=== PATIENT | male | born 1990 | race Caucasian/White ===

== ENCOUNTER 2016-10-31 17:05 | Emergency (ER) | payer OTHER ==
[~2016-10-31] VITALS: Ht 180.3 cm; Wt 93.0 kg
[2016-10-31 17:06] VITALS: BP 147/70; PULSE 76; RESP 16; TEMP 98.6; O2SAT 100
[2016-10-31] MEDS ORDERED: LEXA5TAB PO (17:41)
--- NOTE | 2016-10-31 17:44 | PD ---
HPI . Right jaw pain Chief Complaint: ENT Complaint Time Seen by Provider: 17:43 Travel History International Travel<30 days: No Contact w/Intl Traveler<30days: No Traveled to known affect area: No History of Present Illness HPI 25-year-old male withno significant past medical history here with complaints of right ear/jaw pain. Patient said this has been going on for approximately 2 weeks. He says every time he chews he experiences pain in his right ear. On examination patient is actually showed me the right jaw. He does have some evidence of TMJ with popping in his joints. He has not seen a dentist recently. He recently moved here from [place] and does not have a primary care provider. He denies any cold symptoms. Denies any fever or chills. PFSH Past Medical History Medical History: Denies Significant Hx Social History Tobacco Use: No Allergies-Medications (Allergen,Severity, Reaction): Coded Allergies: No Known Allergies (Unverified , 10/31/16) Reported Meds & Prescriptions Reported Meds & Active Scripts Active Ibuprofen 800 Mg Tab 800 Mg PO TID Reported Lexapro (Escitalopram Oxalate) 5 Mg Tab 5 Mg PO DAILY Review of Systems General / Constitutional: No: Fever Eyes: No: Visual changes HENT: No: Headaches Cardiovascular: No: Chest Pain or Discomfort Respiratory: No: Shortness of Breath Gastrointestinal: No: Abdominal Pain Genitourinary: No: Dysuria Musculoskeletal: Positive: Pain (right jaw pain) Skin: No Rash Neurologic: No: Weakness Psychiatric: No: Depression Endocrine: No: Polydipsia Hematologic/Lymphatic: No: Easy Bruising Physical Exam Narrative GENERAL: AAO x 3, no acute distress, Well-nourished, well-developed patient. SKIN: Warm and dry. No visible rashes or bruising. HEAD: Normocephalic and atraumatic. EYES: No scleral icterus. No injection or drainage. EOM intact, PERRLA ENT: No nasal drainage noted. Mucous membranes pink. Airway patent. TMs normal bilaterally. Posterior pharynx without erythema, exudates or edema.there is jaw popping on examination of his temporomandibular joint. NECK: Supple, trachea midline. No JVD.no lymphadenopathy. CARDIOVASCULAR: Regular rate and rhythm without murmurs, gallops, or rubs. RESPIRATORY: Breath sounds equal bilaterally. No accessory muscle use. No rhonchi or rales. GASTROINTESTINAL: Abdomen soft, non-tender, nondistended. EXTREMITIES: No cyanosis or edema. BACK: Nontender without obvious deformity. No CVA tenderness. PSYCH: AAO x 3, normal affect. Data Data Last Documented VS Vital Signs Date Time Temp Pulse Resp B/P Pulse Ox O2 Delivery O2 Flow Rate FiO2 10/31/16 17:06 98.6 76 16 147/70 100 MDM Medical Decision Making Medical Screen Exam Complete: Yes Emergency Medical Condition: Yes Medical Record Reviewed: Yes Differential Diagnosis TMJ, OE, OM Narrative Course 25-year-old male withno significant past medical history here with complaints of right ear/jaw pain. Patient said this has been going on for approximately 2 weeks. He says every time he chews he experiences pain in his right ear. On examination patient is actually showed me the right jaw. He does have some evidence of TMJ with popping in his joints. He has not seen a dentist recently. He recently moved here from [place] and does not have a primary care provider. He denies any cold symptoms. Denies any fever or chills. Patient seen and examined. I do not see any abnormalities with his ear. He does have some very mild cerumen in the right side of his ear canal. He does have some jaw popping on examination. I recommend that he see a dentist or bunch maker hand for further treatment and evaluation. In the meantime I recommend high-dose ibuprofen to help with inflammation. I have discussed this with him and he was understanding. Patient verbalized understanding of instructions, questions were answered, and thanked me for their care. I advised them if their condition worsens, please return to the nearest emergency room for further care. Diagnosis Primary Impression: TMJ arthralgia Qualified Code: M26.621 - Arthralgia of right temporomandibular joint Patient Instructions: General Instructions Additional Instructions: Please return to emergency department if your symptoms return or worsen. Follow up with your primary care provider. Take medications as prescribed. Please see a dentist or bunch maker hand for further workup and treatment. Med/Other Pt SpecificInfo: Prescription(s) given Scripts Ibuprofen 800 Mg [id number] Mg PO TID #21 TAB Prov:Albert Cisneros MD 10/31/16 Disposition: 01 DISCHARGE HOME Condition: Stable Niurka Yin Oct 31, 2016 17:43
[2016-10-31] MEDS ORDERED: IBUP800T23 PO (17:52)
== END 2016-10-31 17:57 | disposition home or self-care (01) ==
LOC: NEPK 17:05
DX: M26.621 Arthralgia of right temporomandibular joint (principal)
CPT/HCPCS: 99283

== ENCOUNTER 2017-02-24 20:48 | Emergency (ER) | payer OTHER ==
[2017-02-24 20:48] VITALS: BP 138/102; PULSE 130; RESP 18; TEMP 97.4; O2SAT 98
[~2017-02-24 20:48] MED LIST: IBUP800T23 PO; LEXA5TAB PO
== END 2017-02-24 22:00 | disposition left against medical advice (07) ==
LOC: NED 20:48
DX: R06.02 Shortness of breath (principal); Z53.21 Procedure and treatment not carried out due to patient leaving prior to being seen by health care provider
CPT/HCPCS: 99281

== ENCOUNTER 2017-02-27 19:14 | Emergency (ER) | payer OTHER ==
[~2017-02-27] VITALS: Ht 180.3 cm; Wt 88.0 kg
[2017-02-27 19:18] VITALS: BP 143/86; PULSE 64; RESP 16; TEMP 98.3; O2SAT 100
--- NOTE | 2017-02-27 20:22 | PD ---
HPI Chief Complaint: Chest Pain Time Seen by Provider: 20:19 Travel History International Travel<30 days: No Contact w/Intl Traveler<30days: No Traveled to known affect area: No History of Present Illness HPI 26 YO M with PMH of anxiety, sick sinus syndrome, s/p pacemaker implantation presents to the ED for evaluation of 3 day history of 5/10 left sided chest pain radiating down the bilateral arms, left greater than right. He denies associated palpitations, shortness of breath, diaphoresis, nausea or vomiting. He endorses similar history "ever since I got my pacemaker implanted." Also complains of "tightness of my muscles" including tight sensation in the abdomen a few days ago. Those symptoms resolved on presentation. Patient was seen at an outside hospital 3 days ago and treated for "swollen throat feeling" with Prednisone. He endorses compliance with the medication. [place] [employer] [place] [facility] Past Medical History Cardiovascular Problems: Yes (Sick Sinus Syndrome) Past Surgical History Cardiac Surgery: Yes (PACER) Pacemaker: Yes Social History Alcohol Use: No Tobacco Use: No Substance Use: No Allergies-Medications (Allergen,Severity, Reaction): Coded Allergies: No Known Allergies (Unverified , 02/24/17) Reported Meds & Prescriptions Reported Meds & Active Scripts Active Ibuprofen 800 Mg Tab 800 Mg PO TID Reported Lexapro (Escitalopram Oxalate) 5 Mg Tab 5 Mg PO DAILY Review of Systems Except as stated in HPI: all other systems reviewed are Neg Physical Exam Narrative GENERAL: Well-nourished, well-developed , anxious, athletic white male in no acute distress. SKIN: Focused skin assessment warm/dry. There is a well-healed scar over the left clavicular area. There is an implanted pacemaker palpable beneath the skin. Tender to palpation of the lead of the pacemaker where passes under inferior edge of the clavicle. HEAD: Normocephalic. EYES: No scleral icterus. No injection or drainage. NECK: Supple, trachea midline. No JVD or lymphadenopathy. CARDIOVASCULAR: Regular rate and rhythm without murmurs, gallops, or rubs. RESPIRATORY: Breath sounds clear and equal bilaterally. No accessory muscle use. GASTROINTESTINAL: Abdomen soft, non-tender, nondistended. Active bowel sounds. MUSCULOSKELETAL: No cyanosis, or edema. NEUROLOGICAL: Awake and alert. Cranial nerves II through XII intact. Motor and sensory grossly within normal limits. Five out of 5 muscle strength in all muscle groups. Normal speech. BACK: Nontender without obvious deformity. No CVA tenderness. Data Data Last Documented VS Vital Signs Date Time Temp Pulse Resp B/P Pulse Ox O2 Delivery O2 Flow Rate FiO2 02/27/17 20:34 16 02/27/17 19:18 98.3 64 143/86 100 Room Air Orders Electrocardiogram (02/27/17 19:28) Chest, Pa & Lat (02/27/17 19:28) Basic Metabolic Panel (Bmp) (02/27/17 20:17) Ckmb (Isoenzyme) Profile (02/27/17 20:17) Complete Blood Count With Diff (02/27/17 20:17) Magnesium (Mg) (02/27/17 20:17) Troponin I (02/27/17 20:17) Ecg Monitoring (02/27/17 20:17) Bilateral Bp Monitoring (02/27/17 20:17) Iv Access Insert/Monitor (02/27/17 20:17) Oximetry (02/27/17 20:17) Sodium Chloride 0.9% Flush (Ns Flush) (02/27/17 20:30) Labs Laboratory Tests Test 02/27/17 20:30 White Blood Count 13.5 TH/MM3 Red Blood Count 5.01 MIL/MM3 Hemoglobin 14.2 GM/DL Hematocrit 42.9 % Mean Corpuscular Volume 85.5 FL Mean Corpuscular Hemoglobin 28.3 PG Mean Corpuscular Hemoglobin 33.1 % Concent Red Cell Distribution Width 12.9 % Platelet Count 218 TH/MM3 Mean Platelet Volume 7.9 FL Neutrophils (%) (Auto) 67.7 % Lymphocytes (%) (Auto) 24.5 % Monocytes (%) (Auto) 7.5 % Eosinophils (%) (Auto) 0.2 % Basophils (%) (Auto) 0.1 % Neutrophils # (Auto) 9.2 TH/MM3 Lymphocytes # (Auto) 3.3 TH/MM3 Monocytes # (Auto) 1.0 TH/MM3 Eosinophils # (Auto) 0.0 TH/MM3 Basophils # (Auto) 0.0 TH/MM3 CBC Comment DIFF FINAL Differential Comment Sodium Level 136 MEQ/L Potassium Level 3.4 MEQ/L Chloride Level 99 MEQ/L Carbon Dioxide Level 29.5 MEQ/L Anion Gap 8 MEQ/L Blood Urea Nitrogen 11 MG/DL Creatinine 1.13 MG/DL Estimat Glomerular Filtration 80 ML/MIN Rate Random Glucose 80 MG/DL Calcium Level 9.1 MG/DL Magnesium Level 2.1 MG/DL Total Creatine Kinase 63 U/L Troponin I LESS THAN 0.02 NG/ML MDM Medical Decision Making Medical Screen Exam Complete: Yes Emergency Medical Condition: Yes Differential Diagnosis medical claims specialist complication versus chest pain versus anxiety versus musculoskeletal pain versus GERD versus PUD versus other Narrative Course 26 YO M with PMH of anxiety, sick sinus syndrome, s/p pacemaker implantation presents to the ED for evaluation of 3 day history of 5/10 left sided chest pain radiating down the bilateral arms, left greater than right. He denies associated palpitations, shortness of breath, diaphoresis, nausea or vomiting. He endorses similar pain "ever since I got my pacemaker implanted." Also complains of "tightness of my muscles" including tight sensation in the abdomen a few days ago. Those symptoms resolved on presentation. Patient was seen at an outside hospital 3 days ago and treated for "swollen throat feeling" with Prednisone. Vitals reviewed. On physical exam the patient is anxious appearing. There is a pacemaker implanted in the left upper chest. The lead travels under the inferior edge of the clavicle and this is tender to palpation. The physical exam is otherwise unremarkable. EKG rate 61, sinus rhythm. IL interval 138, QRS 99, QTC 363. Normal axis. No ST changes. Reviewed by Dr. Beal. CXR: The lungs are clear per radiology read. Cardiac enzymes: Negative 1 Magnesium: 2.1 No concerning abnormalities of CBC, CMP. The patient's chest pain is localized and I suspect that his other symptoms are caused by anxiety. He states that he was taking antidepressants but stopped "a while back" because he didn't think he needed them anymore. [facility], return for worsening of symptoms. He indicated understanding of instructions and is agreeable to the care plan. He stable and discharged home. Diagnosis Primary Impression: Chest pain not due to acute coronary syndrome Additional Impression: Chest pain, localized [facility] Patient Instructions: Chest Pain (ED), General Instructions Additional Instructions: Rest, hydrate. Return to normal, gentle activities as tolerated. [facility]. Return to the ED for any urgent or emergent medical condition. Disposition: 01 DISCHARGE HOME Condition: Stable Samreen Arteaga Feb 27, 2017 20:22
--- NOTE | 2017-02-27 20:23 | RADRPT ---
EXAM DATE/TIME: 02/27/2017 19:47 [facility] COMPARISON: No previous studies available for comparison. INDICATIONS : Chest pain. MEDICAL HISTORY : None. SURGICAL HISTORY : Pacemaker. ENCOUNTER: Initial ACUITY: 3 days PAIN SCORE: 4/10 LOCATION: Bilateral chest FINDINGS: PA and lateral views of the chest demonstrate the lungs to be symmetrically aerated without evidence of mass, infiltrate or effusion. The cardiomediastinal contours are unremarkable. Osseous structure s are intact. Cardiac pacer with 2 leads. CONCLUSION: The lungs are clear Felix Roberson MD on February 27, 2017 at 20:21 Board Certified Radiologist. This report was verified electronically.
[2017-02-27] MEDS ORDERED: SODIUM CHLORIDE 0.9% FLUSH 10 ML FLUSH IVF PRN (20:30)
[2017-02-27 20:34] VITALS: RESP 16
[2017-02-27 21:03] LABS: AUTOMATED NEUTROPHIL # 9.2 TH/MM3 (1.8-7.7); BASOPHIL % 0.1 % (0.0-2.0); EOSINOPHIL % 0.2 % (0.0-4.0); HEMATOCRIT 42.9 % (39.0-51.0); HEMO FLAGS DIFF FINAL; LYMPH % 24.5 % (9.0-44.0); LYMPHOCYTE # 3.3 TH/MM3 (1.0-4.8); MEAN CELL VOLUME 85.5 FL (80.0-100.0); MEAN CORPUSCULAR HEMOGLOBIN 28.3 PG (27.0-34.0); MEAN CORPUSCULAR HGB CONC 33.1 % (32.0-36.0); MONO % 7.5 % (0.0-8.0); NEUT % 67.7 % (16.0-70.0); PLATELET COUNT 218 TH/MM3 (150-450); RED BLOOD COUNT 5.01 MIL/MM3 (4.50-5.90); RED CELL DISTRIBUTION WIDTH 12.9 % (11.6-17.2); WHITE BLOOD COUNT 13.5 TH/MM3 (4.0-11.0)
[2017-02-27 21:23] LABS: ANION GAP 8 MEQ/L (5-15); BICARBONATE 29.5 MEQ/L (21.0-32.0); BLOOD UREA NITROGEN 11 MG/DL (7-18); CHLORIDE 99 MEQ/L (98-107); GLOMERULAR FILTRATION RATE 80 ML/MIN (>89); MAGNESIUM 2.1 MG/DL (1.5-2.5); POTASSIUM 3.4 MEQ/L (3.5-5.1); SODIUM (NA) 136 MEQ/L (136-145)
[2017-02-27 21:31] LABS: CREATINE KINASE 63 U/L (39-308)
--- NOTE | 2017-02-28 09:34 | EKG ---
Date Performed: 02/27/2017 Time Performed: 19:31:28 PTAGE: 26 years EKG: Sinus rhythm MINIMAL VOLTAGE CRITERIA FOR LVH, CONSIDER NORMAL VARIANT BORDERLINE ECG NO PREVIOUS TRACING DOCTOR: Miguel Angel Lee Interpretating Date/Time 02/28/2017 09:32:02
== END 2017-02-27 22:48 | disposition home or self-care (01) ==
LOC: NEPC 19:14
DX: R07.89 Other chest pain (principal); I49.5 Sick sinus syndrome; Z95.0 Presence of cardiac pacemaker; Z98.890 Other specified postprocedural states
CPT/HCPCS: 71020; 80048; 82550; 83735; 84484; 85025; 93005